=== PATIENT | female | born 1995 | race American Indian/Alaskan Native ===

== ENCOUNTER 2022-03-31 07:26 | Emergency (ER) | payer SELFPAY ==
[2022-03-31 07:47] VITALS: BP 108/74
--- NOTE | 2022-03-31 08:07 | Emergency Department Report ---
ED General Adult HPI - General Chief complaint: Dental/Oral Stated complaint: SWOLLEN FACE Time Seen by Provider: 03/31/22 07:45 Source: patient Mode of arrival: Ambulatory Limitations: No Limitations - History of Present Illness Initial comments: 26-year-old female with no significant past medical history reports to the ER with left-sided lower dental pain for about a day and a half. Patient reports waking up today with swelling to her face to the right lower jaw. Patient denies any concerns with eating or drinking at this time. Patient reports no other acute symptoms. Severity scale (0 -10): 2 - Related Data Previous Rx's Medication Instructions Recorded Last Taken Type Amoxicillin/K Clav Tab [Augmentin 1 tab PO Q12HR 10 Days #20 tab 03/31/22 Unknown Rx 875 mg] Allergies Allergy/AdvReac Type Severity Reaction Status Date / Time No Known Allergies Allergy Unverified 03/31/22 07:48 ED Review of Systems ROS: Stated complaint: SWOLLEN FACE Other details as noted in HPI Comment: All other systems reviewed and negative ENT: dental pain, other (Left-sided jaw swelling) ED Past Medical Hx - Past Medical History Previous Medical History?: No - Medications Home Medications: Home Medications Medication Instructions Recorded Confirmed Last Taken Type Amoxicillin/K Clav Tab [Augmentin 1 tab PO Q12HR 10 Days #20 tab 03/31/22 Unknown Rx 875 mg] ED Physical Exam - General Limitations: No Limitations General appearance: alert, in no apparent distress - Head Head exam: Present: atraumatic, normocephalic - Eye Eye exam: Present: normal appearance - ENT ENT exam: Present: mucous membranes moist - Expanded ENT Exam Expanded Teeth exam: Present: fractured tooth # (Second molar left lower), other (Left- sided facial swelling at jawline) - Neck Neck exam: Present: normal inspection - Respiratory Respiratory exam: Present: normal lung sounds bilaterally. Absent: respiratory distress - Cardiovascular Cardiovascular Exam: Present: regular rate, normal rhythm. Absent: systolic murmur, diastolic murmur, rubs, gallop - GI/Abdominal GI/Abdominal exam: Present: soft, normal bowel sounds - Extremities Exam Extremities exam: Present: normal inspection - Back Exam Back exam: Present: normal inspection - Neurological Exam Neurological exam: Present: alert, oriented X3 - Psychiatric Psychiatric exam: Present: normal affect, normal mood - Skin Skin exam: Present: warm, dry, intact, normal color. Absent: rash ED Course Vital Signs 03/31/22 07:42 Temperature 98.9 F Pulse Rate 91 H Respiratory 18 Rate Blood Pressure 108/74 [Left] O2 Sat by Pulse 97 Oximetry ED Medical Decision Making - Medical Decision Making 26-year-old female reports to the ER with right-sided lower jaw pain and swelling due to a cracked tooth and second molar. Patient denies fever, chills no concerns with eating or chewing. No airway concerns. On physical exam there is slight swelling to the right lower jaw and tenderness noted at the tooth that is cracked. No concerns for peritonsillar abscess. Patient to be started on oral antibiotics for infection coverage. Patient informed to follow-up with her dentist for removal to. Patient agrees with plan of care and verbalized understanding. Patient informed to take [id number] medication to help with the pain. No further work-up is needed at this time patient stable for discharge. Vital Signs 03/31/22 07:42 Temperature 98.9 F Pulse Rate 91 H Respiratory 18 Rate Blood Pressure 108/74 [Left] O2 Sat by Pulse 97 Oximetry Critical care attestation.: If time is entered above; I have spent that time in minutes in the direct care of this critically ill patient, excluding procedure time. ED Disposition Clinical Impression: Dental infection, Facial swelling, Cracked tooth Disposition: 01 HOME / SELF CARE / HOMELESS Is pt being admited?: No Condition: Stable Instructions: Dental Abscess, [id number], Tooth Injuries Prescriptions: Amoxicillin/K Clav Tab [Augmentin 875 mg] 1 tab PO Q12HR 10 Days #20 tab Referrals: [facility] [Outside] - 3-5 Days [facility] [Outside[facility] - 3-5 Days
== END 2022-03-31 08:54 | disposition home or self-care (01) ==
LOC: ED 07:26
DX: K04.7 Periapical abscess without sinus (principal); K03.81 Cracked tooth; Z79.899 Other long term (current) drug therapy
CPT/HCPCS: 99282